=== PATIENT | female | born 1945 | race Hispanic/Latino ===

== ENCOUNTER 2018-02-26 07:20 | Outpatient (CLI) | payer OTHER | END 2018-02-26 07:21 | disposition home or self-care (01) | LOC: C.LAB 07:20 | DX: E03.9 Hypothyroidism, unspecified (principal); I10 Essential (primary) hypertension; Z71.2 Person consulting for explanation of examination or test findings ==

== ENCOUNTER 2018-05-04 07:39 | Outpatient (CLI) | payer OTHER | END 2018-05-04 07:40 | disposition home or self-care (01) | LOC: C.LAB 07:39 | DX: E03.9 Hypothyroidism, unspecified (principal); I10 Essential (primary) hypertension ==